=== PATIENT | female | born 1965 | race Caucasian/White ===

== ENCOUNTER 2019-12-12 21:23 | Emergency (ER) | payer OTHER ==
[~2019-12-12] VITALS: Ht 165.1 cm; Wt 90.7 kg
[2019-12-12 21:26] VITALS: Ht 165.1 cm; Wt 90.7 kg
[2019-12-12 23:27] VITALS: BP 106/68
[2019-12-12 23:50] LABS: microscopic required? YES; urine erythrocyte 1+ (NEGATIVE)
== END 2019-12-12 23:27 | disposition home or self-care (01) ==
LOC: ED 21:23
PROVIDERS: Emergency Medicine
DX: U07.1 COVID-19 (principal); J12.89 Other viral pneumonia
CPT/HCPCS: J1885; Q0092; U0003-CS